=== PATIENT | female | born 1975 | race Caucasian/White ===

== ENCOUNTER 2017-09-13 07:23 | Emergency (ER) | payer BC ==
[~2017-09-13] VITALS: Ht 149.9 cm; Wt 74.8 kg
[2017-09-13 07:26] VITALS: Ht 149.9 cm; Wt 74.8 kg
[2017-09-13 08:50] VITALS: BP 144/98
== END 2017-09-13 08:49 | disposition home or self-care (01) ==
LOC: ED 07:23
DX: S39.012A Strain of muscle, fascia and tendon of lower back, initial encounter (principal); I10 Essential (primary) hypertension; X50.1XXA Overexertion from prolonged static or awkward postures, initial encounter; Y93.89 Activity, other specified; Y92.89 Other specified places as the place of occurrence of the external cause; Y99.8 Other external cause status
CPT/HCPCS: J3010